=== PATIENT | male | born 1975 | race Caucasian/White ===

== ENCOUNTER 2018-10-05 15:16 | Emergency (ER) | payer MEDICAID ==
[2018-10-05] MEDS ORDERED: Sodium Chloride 0.9% 1,000 ML IV ONE (15:21)
--- NOTE | 2018-10-05 15:27 | ED Physician Chart ---
ED Chief Complaint/HPI - Patient Information Date Seen:: 10/05/18 Time Seen:: 15:15 Chief Complaint:: AMS History of Present Illness:: onset x 3 hours of AMS and ALOC; pt admits to heavy ETOH consumption; pt's last ETOH beverage: 3 hours [employer]; no report of trauma, H/As, neck pain, C/P, SOB, Abd. Pain, A/N/V/D/C, fever, chills, or urinary s/s Historian:: Patient, EMS Review:: Nurse's Note Reviewed, Old Chart Reviewed, EMS run form Reviewed <John Poe - Last Filed: 10/05/18 17:59> - Patient Information Allergies:: Allergies Allergy/AdvReac Type Severity Reaction Status Date / Time Penicillins [PCN] Allergy Verified 10/05/18 15:32 <Thelma Castillo - Last Filed: 10/06/18 12:20> ED Review of Systems - Review of Systems General/Constitutional: No fever, No chills, No weight loss, No weakness, No diaphoresis, No edema, No loss of appetite Skin: No skin lesions, No rash, No bruising Head: No headache, No light-headedness Eyes: No loss of vision, No pain, No diplopia ENT: No earache, No nasal drainage, No sore throat, No tinnitus Neck: No neck pain, No swelling, No thyromegaly, No stiffness, No mass noted Cardio Vascular: No chest pain, No palpitations, No PND, No orthopnea, No edema Pulmonary: No SOB, No cough, No sputum, No wheezing GI: No nausea, No vomiting, No diarrhea, No pain, No melena, No hematochezia, No constipation, No hematemesis G/U: No dysuria, No frequency, No hematuria, No nacturia Musculoskeletal: No bone or joint pain, No back pain, No muscle pain Endocrine: No polyuria, No polydipsia Psychiatric: No prior psych history, No depression, No anxiety, No suicidal ideation, No homicidal ideation, No auditory hallucination, No visual hallucination Hematopoietic: No bruising, No lymphadenopathy Allergic/Immuno: No urticaria, No angioedema Neurological: No syncope, No focal symptoms, No weakness, No paresthesia, No headache, No seizure, No dizziness, No confusion, No vertigo <LinorosieJohn - Last Filed: 10/05/18 17:59> ED Past Medical History - Past Medical History Obtainable: Yes Past Medical History: HTN Family History: HTN Social History: Smoker, Alcohol, No Drug Use, Single, Homeless Surgical History: None Psychiatricy History: None Medication: Reviewed <EmilylacirosieJohn - Last Filed: 10/05/18 17:59> Family Medical History - Family Member Mother History Unknown: Yes <AnnaThelma - Last Filed: 10/06/18 12:20> ED Physical Exam - Physical Examination General/Constitutional: Awake, Well-developed, well-nourished, Alert, No distress, GCS 15, Non-toxic appearing, Ambulatory Head: Atraumatic Eyes: Lids, conjuctiva normal, PERRL, EOMI Skin: Nl inspection, No rash, No skin lesions, No ecchymosis, Well hydrated, No lymphadenopathy ENMT: External ears, nose nl, TM canals nl, Nasal exam nl, Lips, teeth, gums nl , Oropharynx nl, Tonsils nl Neck: Nontender, Full ROM w/o pain, No JVD, No nuchal rigidity, No bruit, No mass, No stridor Respiratory: Nl effort/Exclusion, Clear to Auscultation, No Wheeze/Rhonchi/Rales Cardio Vascular: RRR, No murmur, gallop, rubs, NL S1 S2, Carotid/Femoral/Distal pulses equal bilaterally GI: No tenderness/rebounding/guarding, No organomegaly, No hernia, Normal BS's, Nondistended, No mass/bruits, No McBurney tenderness, Rectum exam nl : No CVA tenderness Extremities: No tenderness or effusion, Full ROM, normal strength in all extremities, No edema, Normal digits & nails Neuro/Psych: Alert/oriented, DTR's symmetric, Normal sensory exam, Normal motor strength, Judgement/insight normal, Mood normal, Normal gait, No focal deficits Misc: Normal back, No paraspinal tenderness <EmilylacirosieJohn - Last Filed: 10/05/18 17:59> ED Labs/Radiology/EKG Results - Lab Results Comments:: Reviewed <John Poe - Last Filed: 10/05/18 17:59> - Lab Results Results: Laboratory Tests 10/05/18 10/05/18 10/05/18 15:30 15:30 15:30 WBC 5.0 RBC 4.49 Hgb 13.3 Hct 39.9 L MCV 88.8 MCH 29.6 MCHC Differential 33.3 RDW 14.3 Plt Count 191 MPV 6.7 Neutrophils % 44.3 Lymphocytes % 41.9 Monocytes % 9.1 Eosinophils % 3.2 Basophils % 1.5 PT 9.8 INR 0.94 Sodium 141 Potassium 3.5 Chloride 104 Carbon Dioxide 24.1 Anion Gap 16.4 H BUN 7 Creatinine 0.6 L Est GFR ( Amer) > 60.0 Est GFR (Non-Af Amer) > 60.0 BUN/Creatinine Ratio 11.7 Glucose 117 H Calcium 8.9 Total Bilirubin 0.5 AST 101 H ALT 44 Alkaline Phosphatase 95 Creatine Kinase 1480 H CK-MB (CK-2) 6.9 H Troponin I B-Natriuretic Peptide Total Protein 7.8 Albumin 3.8 L Globulin 4.0 Albumin/Globulin Ratio 1.0 Triglycerides 140 Cholesterol 224 H LDL Cholesterol Direct 167 HDL Cholesterol 50 Amylase Lipase Ethyl Alcohol 10/05/18 10/05/18 10/05/18 15:30 15:30 15:30 WBC RBC Hgb Hct MCV MCH MCHC Differential RDW Plt Count MPV Neutrophils % Lymphocytes % Monocytes % Eosinophils % Basophils % PT INR Sodium Potassium Chloride Carbon Dioxide Anion Gap BUN Creatinine Est GFR ( Amer) Est GFR (Non-Af Amer) BUN/Creatinine Ratio Glucose Calcium Total Bilirubin AST ALT Alkaline Phosphatase Creatine Kinase CK-MB (CK-2) Troponin I < 0.01 L B-Natriuretic Peptide 16.5 Total Protein Albumin Globulin Albumin/Globulin Ratio Triglycerides Cholesterol LDL Cholesterol Direct HDL Cholesterol Amylase 48 Lipase 29 Ethyl Alcohol 10/05/18 15:30 WBC RBC Hgb Hct MCV MCH MCHC Differential RDW Plt Count MPV Neutrophils % Lymphocytes % Monocytes % Eosinophils % Basophils % PT INR Sodium Potassium Chloride Carbon Dioxide Anion Gap BUN Creatinine Est GFR ( Amer) Est GFR (Non-Af Amer) BUN/Creatinine Ratio Glucose Calcium Total Bilirubin AST ALT Alkaline Phosphatase Creatine Kinase CK-MB (CK-2) Troponin I B-Natriuretic Peptide Total Protein Albumin Globulin Albumin/Globulin Ratio Triglycerides Cholesterol LDL Cholesterol Direct HDL Cholesterol Amylase Lipase Ethyl Alcohol 403 H <Thelma Castillo - Last Filed: 10/06/18 12:20> ED Septic Shock - . Is Septic Shock (SBP<90, OR Lactate>4 mmol\L) present?: No <John Poe - Last Filed: 10/05/18 17:59> ED Reassessment (Disposition) - Reassessment Reassessment Condition:: Improved - Diagnosis Diagnosis:: AMS; ALOC; ETOH Intoxication <John Poe - Last Filed: 10/05/18 17:59> - Reassessment Reassessment:: Pt woke up from etoh intoxication and felt better. D/c home - Patient Disposition Discharge/Transfer:: Home <Thelma Castillo - Last Filed: 10/06/18 12:20>
[2018-10-05 15:37] LABS: BASOPHILE ABSOLUTE 0.1 Th/cumm (0-0.2); EOSINOPHILE ABSOLUTE 0.2 Th/cmm (0.1-0.4); HEMOGLOBIN 13.3 gm/dL (12-16); MONOCYTE ABSOLUTE 0.5 Th/cmm (0.3-1.0)
[2018-10-05 15:48] LABS: % BASOPHILS 1.5 % (0.0-2.0); % EOSINOPHILS 3.2 % (0.0-5.0); % LYMPHOCYTES 41.9 % (20.0-50.0); % MONOCYTES 9.1 % (2.0-10.0); % NEUTROPHILS 44.3 % (40.0-80.0); HEMATOCRIT 39.9 % (41.0-60); LYMPHOCYTE ABSOLUTE 2.1 Th/cmm (1.5-3.0); MEAN CELL VOLUME 88.8 fl (80-99); MEAN CORPUSCULAR HEMOGLOBIN 29.6 pg (26.0-30.0); MEAN CORPUSCULAR HGB CONC 33.3 pg (28.0-36.0); MEAN PLATELET VOLUME 6.7 fl; NEUTROPHILE ABSOLUTE 2.1 Th/cmm (1.8-8.0); PLATELET COUNT 191 Th/cmm (150-400); RED BLOOD COUNT 4.49 Mil/cmm (4.30-5.70); RED CELL DISTRIBUTION WIDTH 14.3 % (11.5-20.0)
[2018-10-05 15:54] LABS: ALBUMIN 3.8 gm/dL (4.2-5.5); ALKALINE PHOSPHATASE 95 U/L (34-104); ANION GAP 16.4 (7.0-16.0); BILIRUBIN,TOTAL 0.5 mg/dL (0.3-1.0); BUN - UREA NITROGEN 7 mg/dL (7-25); CALCIUM SERUM 8.9 mg/dL (8.6-10.3); CARBON DIOXIDE 24.1 mEq/L (21.0-31.0); CHLORIDE 104 mEq/L (98-107); CHOLESTEROL 224 mg/dL (<200); CREATININE - SERUM 0.6 mg/dL (0.7-1.3); GFR AFRICAN-AMERICAN > 60.0 ml/min (>90); GFR NON AFRICAN-AMERICAN > 60.0 ml/min; GLUCOSE 117 mg/dL (70-105); HDL -HIGH DENSITY LIPOPROTEIN 50 mg/dL (23-92); INR 0.94 (0.5-1.4); POTASSIUM SERUM 3.5 mEq/L (3.5-5.1); PROTHROMBIN TIME (TEST) 9.8 SECONDS (9.5-11.5); SGOT 101 U/L (13-39); SGPT/ALT 44 U/L (7-52); SODIUM SERUM 141 mEq/L (136-145); TOTAL PROTEIN,SERUM 7.8 gm/dL (6.0-8.3); TRIGLYCERIDES 140 mg/dL (<150)
[2018-10-05 15:56] LABS: AMYLASE SERUM 48 U/L (29-103); LIPASE 29 U/L (11-82)
[2018-10-05 16:21] LABS: CREATININE KINASE 1480 U/L (30-223)
[2018-10-05] MEDS ORDERED: Multivitamin Inj 10 ML, Thiamine HCL 100 MG, Magnesium Sulfate 2 GM, Folic Acid 1 MG in... IV ONE (16:47)
== END 2018-10-05 21:36 | disposition home or self-care (01) ==
LOC: ER 15:16
DX: F10.129 Alcohol abuse with intoxication, unspecified (principal); R41.82 Altered mental status, unspecified; I10 Essential (primary) hypertension; F17.200 Nicotine dependence, unspecified, uncomplicated; Y90.8 Blood alcohol level of 240 mg/100 ml or more; Z88.0 Allergy status to penicillin
CPT/HCPCS: 36415-UA; 80053-TC; 80061-TC; 80320-TC; 82150-TC; 82550-TC; 82553; 83690-TC; 83880-TC; 84484-TC; 85025-TC; 85610-TC; 93005; 94760; J7030